=== PATIENT | female | born 1960 | race Caucasian/White ===

== ENCOUNTER 2018-09-05 04:22 | Emergency (ER) | payer BC, OTHER ==
[~2018-09-05] VITALS: Ht 167.6 cm; Wt 63.6 kg
[~2018-09-05 04:22] MED LIST: CALCIUM 600 +600 MG PO; CHILD ASA LS81 MG OR; FLEXERIL OR; LASIX20 MG OR; LEVOTHROID50 MCG PO; LEVOTHYROXIN125 MC1 PO; LORTAB 10 PO; NOVOLIN R SC; REGLAN10 MG PO; [UNRECOGNIZED DRUG - OTHER]
[2018-09-05] MEDS ORDERED: LEVOTHYROXIN100 MC1 PO (04:37)
[2018-09-05] MEDS ORDERED: DILTIAZEM120 MG PO (04:38)
[2018-09-05 05:12] LABS: HEMATOCRIT 37.9 % (37.0-47.0); HEMOGLOBIN 12.8 g/dl (12.0-16.0); IMMATURE GRANULOCYTES 0.1 % (0.0-5.0); MEAN CELL VOLUME 91.5 fL CALC (80.0-100.0); MEAN CORPUSCULAR HGB 30.9 pG CALC (26.0-32.0); MEAN CORPUSCULAR HGB CONC 33.8 g/L CALC (32.0-36.0); NEUT# 4.77 thou/uL (2.00-7.15); RED BLOOD COUNT 4.14 mill/uL (4.20-5.60); RED CELL DISTRI WIDTH 14.3 % (11.5-15.5)
[2018-09-05 05:23] LABS: AMYLASE 32 u/l (30-110); ANION GAP 13 (6-22 (CALC)); BILIRUBIN, TOTAL 0.5 mg/dL (0.0-1.4); BUN 22 mg/dL (7-17); BUN/CREATININE RATIO 21 (12-20 (CALC)); CARBON DIOXIDE 28 mmol/l (22-30); CHLORIDE 103 mmol/l (95-108); GFR 57 ML/MIN (>=60 (CALC)); GFR FOR AFR.AMER. > 60 ML/MIN (>=60 (CALC)); LIPASE 160 u/l (23-300); SGOT/AST 32 u/l (14-36); SODIUM 140 mmol/l (137-146)
[2018-09-05 05:29] LABS: ALBUMIN 4.4 g/dL (3.2-5.0); ALKALINE PHOSPHATASE 121 u/l (38-126); TOTAL PROTEIN 7.2 g/dL (6.3-8.2)
[2018-09-05 05:35] LABS: MYOGLOBIN 37 ng/mL (0 - 62)
[2018-09-05] MEDS ORDERED: VOLTAREN1%GEL TOP (09:00)
[2018-09-05] MEDS ORDERED: MOTRIN400 MG PO (09:00)
[2018-09-05 09:19] VITALS: BP 163/74
[2018-09-05 09:25] LABS: URINE BILIRUBIN - DIPSTICK NEGATIVE (NEGATIVE); URINE BLOOD DIPSTICK NEGATIVE (NEGATIVE); URINE COLOR YELLOW; URINE GLUCOSE - DIPSTICK NEGATIVE (NEGATIVE); URINE KETONE TRACE mg/dL (NEGATIVE); URINE LEUK ESTERASE NEGATIVE (NEGATIVE); URINE NITRITE - DIPSTICK NEGATIVE (Negative); URINE PH 6.5 (4.5-8.0); URINE PROTEIN - DIPSTICK NEGATIVE (NEG-TRACE); URINE SPECIFIC GRAVITY 1.015; URINE UROBILINOGEN - DIPSTICK 0.2 E.U./dL (0.2)
== END 2018-09-05 09:19 | disposition home or self-care (01) | DRG 204 ==
LOC: ED 04:22
PROVIDERS: Emergency Medicine
DX: R07.81 Pleurodynia (principal); S29.011A Strain of muscle and tendon of front wall of thorax, initial encounter; R11.2 Nausea with vomiting, unspecified; R10.32 Left lower quadrant pain; R94.31 Abnormal electrocardiogram [ECG] [EKG]; I10 Essential (primary) hypertension

== ENCOUNTER → 2018-10-14 | Outpatient (REF) ==
[~2018-10-14] MED LIST changes: +DILTIAZEM120 MG PO; +LEVOTHYROXIN100 MC1 PO; +MOTRIN400 MG PO; +VOLTAREN1%GEL TOP
== END | disposition home or self-care (01) | DRG 639 ==
LOC: LAB 08:09
DX: E10.8 Type 1 diabetes mellitus with unspecified complications (principal)

== ENCOUNTER 2018-12-03 07:52 | Day surgery (SDC) | payer BC ==
[~2018-12-03] VITALS: Ht 160 cm; Wt 64.9 kg
[~2018-12-03 07:52] MED LIST changes: +MULTI VIT PO; +SIMVASTATIN10 MG PO
[2018-12-03 10:11] VITALS: BP 120/70
== END 2018-12-03 10:25 | disposition home or self-care (01) | DRG 395 ==
LOC: ENDO 07:52 → ORM 11:30
PROVIDERS: ATTEND Surgery
PROC: 0DBH8ZX Excision of Cecum, Via Natural or Artificial Opening Endoscopic, Diagnostic (ICD-10-PCS; principal; 2018-12-03)
PROC: 0DBN8ZX Excision of Sigmoid Colon, Via Natural or Artificial Opening Endoscopic, Diagnostic (ICD-10-PCS; 2018-12-03)
DX: K63.5 Polyp of colon (principal); K64.8 Other hemorrhoids; E11.9 Type 2 diabetes mellitus without complications; I10 Essential (primary) hypertension; F17.210 Nicotine dependence, cigarettes, uncomplicated; Z01.818 Encounter for other preprocedural examination; R19.4 Change in bowel habit; E03.9 Hypothyroidism, unspecified; E78.00 Pure hypercholesterolemia, unspecified; Z98.890 Other specified postprocedural states